=== PATIENT | female | born 1955 | race Caucasian/White ===

== ENCOUNTER 2023-10-18 12:18 | Outpatient (RCR) | payer OTHER, SELFPAY | END 2023-10-18 23:59 | disposition home or self-care (01) | LOC: RPT 12:18 | PROVIDERS: ATTENDING PHYSICIAN Internal Medicine Gastroenterology; FAMILY PHYSICIAN Nurse Practitioner | DX: K59.02 Outlet dysfunction constipation (principal); M62.89 Other specified disorders of muscle | CPT/HCPCS: 97110; 97112; 97163; 97530 ==

== ENCOUNTER → 2023-11-06 07:29 | Outpatient (REF) | payer OTHER, SELFPAY ==
[2023-11-06 09:36] LABS: TSH Reflex To Free T4 1.73 uIU/ml (0.47-4.68)
[2023-11-08 01:41] LABS: IgA 192 mg/dl (70-400); IgG 1067 mg/dl (700-1600); IgM 89 mg/dl (40-230)
[2023-11-09 13:41] LABS: tTG IgA Antibody 5.4 EU/ml (0-19)
[2023-11-10 21:37] LABS: Pancreatic Elastase, Fecal >800 ug/g (>=100)
[2023-11-10 22:07] LABS: Calprotectin, Fecal 45 ug/g (<=49)
== END ==
LOC: REG 07:29
PROVIDERS: ATTENDING PHYSICIAN Internal Medicine Gastroenterology; FAMILY PHYSICIAN Nurse Practitioner
DX: R19.5 Other fecal abnormalities (principal)
CPT/HCPCS: 36415; 82653; 82784; 83516; 83993; 84443; 87328; 87329

== ENCOUNTER 2023-11-22 11:50 | Outpatient (RCR) | payer OTHER, SELFPAY | END 2023-11-22 23:59 | disposition home or self-care (01) | LOC: RPT 11:50 | PROVIDERS: ATTENDING PHYSICIAN Internal Medicine Gastroenterology; FAMILY PHYSICIAN Nurse Practitioner | DX: K59.02 Outlet dysfunction constipation (principal); M62.89 Other specified disorders of muscle; Z73.6 Limitation of activities due to disability; Z98.890 Other specified postprocedural states | CPT/HCPCS: 97110; 97112; 97530 ==

== ENCOUNTER → 2023-12-06 06:36 | Day surgery (SDC) | payer OTHER, SELFPAY ==
[2023-12-06 11:35] LABS: Glucose - Point of Care 93 mg/dl (70-99)
== END ==
LOC: GI 06:36
PROVIDERS: ATTENDING PHYSICIAN Internal Medicine Gastroenterology
DX: R13.10 Dysphagia, unspecified (principal); K22.2 Esophageal obstruction; K22.89 Other specified disease of esophagus; K31.7 Polyp of stomach and duodenum; K44.9 Diaphragmatic hernia without obstruction or gangrene; K31.89 Other diseases of stomach and duodenum; K20.80 Other esophagitis without bleeding
CPT/HCPCS: 43239; 88305; 82962; 88342

== ENCOUNTER → 2024-01-10 07:35 | Outpatient (REF) | payer OTHER, SELFPAY | LOC: RAD 07:35 | PROVIDERS: ATTENDING PHYSICIAN Internal Medicine Interventional Cardiology; FAMILY PHYSICIAN Internal Medicine | DX: E78.5 Hyperlipidemia, unspecified (principal) | CPT/HCPCS: 75571; 93306 ==

== ENCOUNTER → 2024-01-24 06:45 | Outpatient (REF) | payer OTHER, SELFPAY ==
[2024-01-24 09:06] LABS: ALT (SGPT) 45 U/L (0-35); AST (SGOT) 41 U/L (14-36); Albumin 4.6 g/dl (3.5-5.0); Alkaline Phosphatase 69 U/L (38-126); Blood Urea Nitrogen 18 mg/dl (7-17); Calcium 9.4 mg/dl (8.4-10.2); Carbon Dioxide 27 mmol/L (22-30); Chloride 103 mmol/L (98-107); Glucose 115 mg/dl (70-99); HDL Cholesterol 70 mg/dl; LDL Cholesterol, Calculated 79 mg/dl; Potassium 4.4 mmol/L (3.5-5.1); Sodium 137 mmol/L (135-145); Total Bilirubin 0.5 mg/dl (0.2-1.3); Total Cholesterol 163 mg/dl (50-199); Total Protein 7.3 g/dl (6.3-8.2); Triglyceride 73 mg/dl (10-149); Very Low Density Lipoprotein 14 mg/dl (0-30); eGFR > 60.00
[2024-01-24 09:30] LABS: Glycohemoglobin (HgbA1c) 6.5 % (4.0-5.6)
[2024-01-25 12:50] LABS: Apolipoprotein B 84 mg/dL (60-117)
[2024-01-25 12:53] LABS: Lipoprotein a (Lp a) 33 mg/dL (<=29)
== END ==
LOC: REG 06:45
PROVIDERS: ATTENDING PHYSICIAN Internal Medicine Interventional Cardiology; FAMILY PHYSICIAN Internal Medicine
DX: E78.5 Hyperlipidemia, unspecified (principal); E11.9 Type 2 diabetes mellitus without complications
CPT/HCPCS: 36415; 80053; 80061; 82172; 83036; 83695

== ENCOUNTER → 2024-03-02 10:17 | Outpatient (REF) | payer OTHER, SELFPAY ==
[2024-03-02 11:59] LABS: Iron 41 ug/dl (37-170)
[2024-03-02 12:10] LABS: Percent Saturation 12 % (20-50); Total Iron Binding Capacity 330 ug/dl (265-497)
[2024-03-02 12:28] LABS: Ferritin 42.6 ng/ml (11.1-264.0)
[2024-03-03 02:13] LABS: Hepatitis B Core Ab, Total Negative (Negative); Hepatitis B Surface Antibody Positive; Hepatitis C Antibody Negative (Negative)
[2024-03-03 03:46] LABS: Hepatitis A Antibody, Total Positive (Negative)
[2024-03-03 12:25] LABS: Hepatitis A IgM Antibody Negative (Negative)
== END ==
LOC: REG 10:17
PROVIDERS: ATTENDING PHYSICIAN Internal Medicine Gastroenterology; FAMILY PHYSICIAN Internal Medicine
DX: R74.8 Abnormal levels of other serum enzymes (principal)
CPT/HCPCS: 36415; 82728; 83540; 83550; 86704; 86706; 86708; 86709; 86803

== ENCOUNTER → 2024-03-03 16:03 | Outpatient (REF) | payer OTHER, SELFPAY ==
[2024-03-03 17:18] LABS: % Basophils 0.3 % (0-2); % Eosinophils 1.4 % (0-6); % Immature Granulocytes 0.2 % (0-0.5); % Lymphocytes 31.8 % (20.5-51.1); % Monocytes 8.3 % (1.7-9.3); Absolute Eosinophils 0.1 10^3/uL (0-0.7); Absolute Lymphocytes 1.8 10^3/uL (1.2-3.4); Absolute Monocytes 0.5 10^3/uL (0.1-0.6); Absolute Neutrophils 3.4 10^3/uL (1.4-6.5); Hematocrit 38.1 % (37.0-47.0); Hemoglobin 12.8 g/dL (12.0-16.0); Mean Corp Hgb Conc. 33.6 g/dL (33.0-37.0); Mean Corpuscular Hgb 31.8 pg (27.0-31.0); Mean Corpuscular Volume 94.5 fL (81.0-99.0); Mean Platelet Volume 9.5 fL (7.4-10.4); Nucleated Red Blood Cells % 0 %; Platelet Count 277 10^3/uL (130-400); Red Blood Cell Count 4.03 10^6/uL (4.20-5.40); Red Cell Dist. Width 13.2 % (11.5-14.5); White Blood Cell Count 5.8 10^3/uL (4.8-10.8)
== END ==
LOC: REG 16:03
PROVIDERS: ATTENDING PHYSICIAN Internal Medicine Gastroenterology; FAMILY PHYSICIAN Internal Medicine
DX: R74.8 Abnormal levels of other serum enzymes (principal)
CPT/HCPCS: 36415; 85025

== ENCOUNTER → 2024-03-06 07:25 | Outpatient (REF) | payer OTHER, SELFPAY | LOC: HWRAD 07:25 | PROVIDERS: ATTENDING PHYSICIAN Internal Medicine; OTHER PHYSICIAN Internal Medicine Gastroenterology; REFERRING PHYSICIAN Internal Medicine Interventional Cardiology | DX: R79.89 Other specified abnormal findings of blood chemistry (principal) | CPT/HCPCS: 76700 ==

== ENCOUNTER → 2024-04-03 06:36 | Day surgery (SDC) | payer OTHER, SELFPAY ==
[2024-04-03 10:00] LABS: Glucose - Point of Care 110 mg/dl (70-99)
== END ==
LOC: GI 06:36
PROVIDERS: ATTENDING PHYSICIAN Internal Medicine Gastroenterology
DX: K62.5 Hemorrhage of anus and rectum (principal); R19.7 Diarrhea, unspecified; K64.0 First degree hemorrhoids; K63.3 Ulcer of intestine; K62.89 Other specified diseases of anus and rectum; K57.30 Diverticulosis of large intestine without perforation or abscess without bleeding; D12.0 Benign neoplasm of cecum
CPT/HCPCS: 45385; 45380; 88305; 82962

== ENCOUNTER → 2024-04-10 07:09 | Outpatient (REF) | payer OTHER, SELFPAY | LOC: RAD 07:09 | PROVIDERS: ATTENDING PHYSICIAN Internal Medicine; REFERRING PHYSICIAN Internal Medicine Interventional Cardiology | DX: I65.23 Occlusion and stenosis of bilateral carotid arteries (principal) | CPT/HCPCS: 93880 ==

== ENCOUNTER → 2024-06-05 07:39 | Outpatient (REF) | payer OTHER, SELFPAY | LOC: PAVMRI 07:39 | PROVIDERS: ATTENDING PHYSICIAN Internal Medicine Gastroenterology; FAMILY PHYSICIAN Internal Medicine | DX: R19.7 Diarrhea, unspecified (principal) | CPT/HCPCS: 72197; 74183; A9575 ==

== ENCOUNTER → 2024-07-13 10:41 | Outpatient (REF) | payer OTHER, SELFPAY ==
[2024-07-13 11:41] LABS: % Basophils 0.5 % (0-2); % Eosinophils 1.5 % (0-6); % Immature Granulocytes 0.3 % (0-0.5); % Lymphocytes 25.2 % (20.5-51.1); % Monocytes 7.7 % (1.7-9.3); % Neutrophils 64.8 % (42.2-75.2); Absolute Eosinophils 0.1 10^3/uL (0-0.7); Absolute Lymphocytes 1.5 10^3/uL (1.2-3.4); Absolute Monocytes 0.5 10^3/uL (0.1-0.6); Absolute Neutrophils 3.9 10^3/uL (1.4-6.5); Hematocrit 37.6 % (37.0-47.0); Hemoglobin 13.1 g/dL (12.0-16.0); Mean Corp Hgb Conc. 34.8 g/dL (33.0-37.0); Mean Corpuscular Hgb 31.1 pg (27.0-31.0); Mean Corpuscular Volume 89.3 fL (81.0-99.0); Mean Platelet Volume 9.6 fL (7.4-10.4); Nucleated Red Blood Cells % 0 %; Platelet Count 296 10^3/uL (130-400); Red Blood Cell Count 4.21 10^6/uL (4.20-5.40); Red Cell Dist. Width 13.4 % (11.5-14.5)
[2024-07-13 12:07] LABS: ALT (SGPT) 34 U/L (0-35); AST (SGOT) 34 U/L (14-36); Alkaline Phosphatase 67 U/L (38-126); Direct Bilirubin 0.1 mg/dl (0.0-0.4); Iron 166 ug/dl (37-170); Total Bilirubin 0.3 mg/dl (0.2-1.3); Total Protein 7.6 g/dl (6.3-8.2)
[2024-07-13 12:17] LABS: Percent Saturation 52 % (20-50); Total Iron Binding Capacity 319 ug/dl (265-497)
[2024-07-13 12:42] LABS: Ferritin 65.8 ng/ml (11.1-264.0)
== END ==
LOC: REG 10:41
PROVIDERS: ATTENDING PHYSICIAN Internal Medicine Gastroenterology; FAMILY PHYSICIAN Internal Medicine
DX: R74.8 Abnormal levels of other serum enzymes (principal); E61.1 Iron deficiency
CPT/HCPCS: 36415; 80076; 82728; 83540; 83550; 85025

== ENCOUNTER 2024-09-16 16:26 | Emergency (ER) | payer OTHER, SELFPAY ==
[2024-09-16 16:28] VITALS: BP 146/60
[2024-09-16 16:50] LABS: % Basophils 0.5 % (0-2); % Eosinophils 1.1 % (0-6); % Immature Granulocytes 0.2 % (0-0.5); % Lymphocytes 24.8 % (20.5-51.1); % Monocytes 6.6 % (1.7-9.3); % Neutrophils 66.8 % (42.2-75.2); Absolute Eosinophils 0.1 10^3/uL (0-0.7); Absolute Lymphocytes 1.6 10^3/uL (1.2-3.4); Absolute Monocytes 0.4 10^3/uL (0.1-0.6); Absolute Neutrophils 4.4 10^3/uL (1.4-6.5); Hematocrit 39.3 % (37.0-47.0); Hemoglobin 13.9 g/dL (12.0-16.0); Mean Corp Hgb Conc. 35.4 g/dL (33.0-37.0); Mean Corpuscular Hgb 32.7 pg (27.0-31.0); Mean Corpuscular Volume 92.5 fL (81.0-99.0); Mean Platelet Volume 8.8 fL (7.4-10.4); Nucleated Red Blood Cells % 0 %; Platelet Count 277 10^3/uL (130-400); Red Blood Cell Count 4.25 10^6/uL (4.20-5.40); Red Cell Dist. Width 13.5 % (11.5-14.5); White Blood Cell Count 6.5 10^3/uL (4.8-10.8)
[2024-09-16 17:01] LABS: ALT (SGPT) 32 U/L (0-35); AST (SGOT) 33 U/L (14-36); Albumin 4.9 g/dl (3.5-5.0); Alkaline Phosphatase 54 U/L (38-126); Blood Urea Nitrogen 18 mg/dl (7-17); Calcium 9.4 mg/dl (8.4-10.2); Carbon Dioxide 26 mmol/L (22-30); Chloride 101 mmol/L (98-107); Glucose 131 mg/dl (70-99); Lipase 137 U/L (23-300); Potassium 3.8 mmol/L (3.5-5.1); Sodium 137 mmol/L (135-145); Total Bilirubin 0.3 mg/dl (0.2-1.3); Total Protein 7.5 g/dl (6.3-8.2); eGFR > 60.00
[2024-09-16 18:06] VITALS: BP 126/70
[2024-09-16 18:55] LABS: Urine Albumin Trace (Neg - Trace); Urine Bilirubin Negative (Negative); Urine Character Clear (Clear); Urine Color Yellow; Urine Glucose Negative (Negative); Urine Ketone Negative (Negative); Urine Leukocyte Negative (Negative); Urine Nitrite Negative (Negative); Urine Occult Blood Negative (Negative); Urine Specific Gravity 1.025 (<1.030); Urine Urobilinogen Negative (Neg - 1+)
--- NOTE | 2024-09-16 19:57 | ED.GENMED ---
History of Present Illness
General
Chief Complaint: Abdominal Pain
Source: patient
Exam Limitations: none
Time Seen by Provider: 09/16/24 18:08
Nursing documentation reviewed up to this point in time: agreed with
History of Present Illness
History of Present Illness:
The patient is a 69-year-old female past medical history of diabetes asthma presenting to the emergency department today with concerns of left upper quadrant abdominal pain for the past 5 days with associated nausea. Pain seems to be worse with
some specific positioning and movement. Denies any associated chest pain shortness of breath nausea vomiting. Not specifically exertional.
Review of Systems
Review of Systems
Allergies reviewed?: Yes
All Other Systems: ROS reviewed and negative except as documented in HPI and ROS
Phy Exam
Physical Exam
Physical Exam:
GENERAL: Alert , in no apparent distress
EYE: pupils equal and reactive
NECK: Supple, no significant adenopathy.
ENT: o/p clr, mmm.
CARDIAC: Regular rate and rhythm .
LUNGS: Clear breath sounds bilaterally, no acute respiratory distress, no wheezes/rales/rhonchi
ABDOMEN: Soft, without focal tenderness, no r/g, no cvat
NEUROLOGICAL: Alert and oriented, no focal neuro deficits
SKIN: Warm and dry, skin intact.
MUSCULOSKELETAL: No edema, well perfused.
PSYCH: Normal and appropriate interaction.
Course
Orders/Labs/Results
Orders:
Orders
09/16/24 16:38
Complete Blood Count/With Diff Urgent
Comprehensive Metabolic Panel Urgent
Lipase Urgent
09/16/24 18:44
Urinalysis Reflex To Culture Urgent
Date Specimen was Collected: 09/16/24
Time Specimen was Collected: 18:42
09/16/24 18:58
CT Abd/Pel (IV only)-DH only Urgent
Comment:
Reason For Exam: left sided upper abd pain
Abnormal Lab Results
09/16/24
16:38
MCH 32.7 H pg
(27.0-31.0)
BUN 18 H mg/dl
(7-17)
Glucose 131 H mg/dl
(70-99)
09/16/24 16:38
09/16/24 16:38
Vital Signs
Initial and Last Documented VS:
Initial Vital Signs
Temp Pulse Resp BP Pulse Ox
98.2 F 81 16 146/60 96
09/16/24 16:28 09/16/24 16:28 09/16/24 16:28 09/16/24 16:28 09/16/24 16:28
Last Documented Vital Signs
Temp Pulse Resp BP Pulse Ox
98.2 F 81 16 126/70 96
09/16/24 16:28 09/16/24 16:28 09/16/24 16:28 09/16/24 18:06 09/16/24 18:45
MDM/Problems Addressed
MDM/Problems Addressed:
69-year-old female presenting to the emergency department today with concerns of left-sided abdominal pain mainly surrounding the lower ribs over the past 5 days associated nausea no vomiting no changes in bowel movements. Abdomen vague mild
discomfort to the left flank otherwise no specific abdominal tenderness no peritoneal signs no guarding. CT without emergent findings patient generally well-appearing throughout ER stay labs unremarkable patient vies for close outpatient follow-up
and otherwise no emergent findings at this time.
*Critical Care Note
Total Time (30-74mins, 75-104mins- exclusive of procedures): Not Applicable
ED Attending Note
-
Portions of this chart may have been created with voice recognition software.� Occasional wrong word or��sound alike� substitutions may have occurred due to the inherent limitations of voice recognition software.
Discharge Plan
Departure
Patient Disposition: Home (Routine Discharge)
Date of Disposition: 09/16/24
Time of Disposition: 21:42
Patient with high blood pressure during this ER visit?: No
Condition: Good
Covid-19: Not Applicable
Discharge Problem:
Abdominal pain
Instructions: Abdominal Pain
Prescriptions:
No Action
No Current Medications
Referrals:
Chuck Leach MD [Family Provider] -
Activity Restrictions/Additional Instructions:
You came to the emergency department today with concerns of left-sided flank and abdominal discomfort. Here had a reassuring assessment. Please follow closely with your outpatient doctors. Return to the emergency department worsening, new or
concerning symptoms.
Interventions
Interventions:
*Risk Screen - Suicide Last Done: 09/16/24 16:28
*General Assessment Last Done: 09/16/24 16:28
*Neglect/Abuse Screening Last Done: 09/16/24 16:28
ED- Fall Risk Assessment Last Done: 09/16/24 18:49
*ED COVID-19 Vaccine History Last Done: 09/16/24 16:28
*Nursing Disposition Last Done: 09/16/24 21:50
QQ-Ivtsjc-Jlpvnpltwn Assessment Last Done: 09/16/24 18:49
Discharge Date and Time
Discharge Date/Time: 09/16/24 21:51
Print Language: UZBEK
== END 2024-09-16 21:51 | disposition home or self-care (01) ==
LOC: EMR 16:26
PROVIDERS: Physician Assistant; EMERGENCY PHYSICIAN Emergency Medicine; FAMILY PHYSICIAN Internal Medicine
DX: R10.12 Left upper quadrant pain (principal); R11.0 Nausea; E11.9 Type 2 diabetes mellitus without complications; J45.909 Unspecified asthma, uncomplicated
CPT/HCPCS: 99284; 74177; 80053; 81003; 83690; 85025; Q9967

== ENCOUNTER 2024-09-27 12:41 | Emergency (ER) | payer OTHER, SELFPAY ==
[2024-09-27 12:44] VITALS: BP 147/71
[2024-09-27 13:00] LABS: % Basophils 0.4 % (0-2); % Eosinophils 0.5 % (0-6); % Immature Granulocytes 0.3 % (0-0.5); % Lymphocytes 19.6 % (20.5-51.1); % Monocytes 4.5 % (1.7-9.3); % Neutrophils 74.7 % (42.2-75.2); Absolute Lymphocytes 1.5 10^3/uL (1.2-3.4); Absolute Monocytes 0.3 10^3/uL (0.1-0.6); Absolute Neutrophils 5.6 10^3/uL (1.4-6.5); Hemoglobin 13.8 g/dL (12.0-16.0); Mean Corp Hgb Conc. 33.7 g/dL (33.0-37.0); Mean Corpuscular Hgb 31.9 pg (27.0-31.0); Mean Corpuscular Volume 94.9 fL (81.0-99.0); Mean Platelet Volume 8.8 fL (7.4-10.4); Nucleated Red Blood Cells % 0 %; Platelet Count 286 10^3/uL (130-400); Red Blood Cell Count 4.32 10^6/uL (4.20-5.40); Red Cell Dist. Width 13.2 % (11.5-14.5); White Blood Cell Count 7.5 10^3/uL (4.8-10.8)
[2024-09-27 13:11] LABS: ALT (SGPT) 30 U/L (0-35); AST (SGOT) 27 U/L (14-36); Albumin 4.9 g/dl (3.5-5.0); Alkaline Phosphatase 51 U/L (38-126); Blood Urea Nitrogen 19 mg/dl (7-17); Calcium 9.5 mg/dl (8.4-10.2); Carbon Dioxide 29 mmol/L (22-30); Chloride 98 mmol/L (98-107); Glucose 141 mg/dl (70-99); Potassium 4.3 mmol/L (3.5-5.1); Sodium 137 mmol/L (135-145); Total Bilirubin 0.4 mg/dl (0.2-1.3); Total Protein 7.5 g/dl (6.3-8.2); eGFR > 60.00
[2024-09-27 16:04] VITALS: BP 135/80
[2024-09-27 16:05] VITALS: BMI 23.7
--- NOTE | 2024-09-27 16:25 | ED.GENMED ---
History of Present Illness
General
Chief Complaint: Abdominal Pain
Source: patient
Exam Limitations: none
Time Seen by Provider: 09/27/24 15:58
Nursing documentation reviewed up to this point in time: agreed with
History of Present Illness
History of Present Illness:
Patient with history of diabetes on insulin and metformin, presents to ED secondary to continual intermittent left-sided abdominal pain with nausea sensation over the past 2 weeks. Patient was seen in ED for similar complaint at onset of her
symptoms, during which time she received normal workup, including blood work and CT scan abdomen pelvis. Denies fever or chills. Denies vomiting or diarrhea. Denies trauma. Denies back pain. Denies difficulty with urination. Abdominal pain
described as achy, nonradiating, without any alleviating or exacerbating factors. Denies previous history of similar symptoms. Patient has had history of back pain, for which she has seen painter supervisor, but states that her symptoms
are different than her previous back pain.
Review of Systems
Review of Systems
Allergies reviewed?: Yes
All Other Systems: ROS reviewed and negative except as documented in HPI and ROS
Constitutional: Reports no symptoms; Denies fever or chills
Respiratory: Reports no symptoms
Cardiac: Reports no symptoms
ABD/GI: Reports abdominal pain; Denies vomiting or diarrhea
: Reports no symptoms
Musculoskeletal: Reports no symptoms; Denies back pain
Skin: Reports no symptoms
Neurological: Reports no symptoms
Phy Exam
Physical Exam
Physical Exam:
Physical Exam
General: mild painful distress, not acutely ill. afebrile
Head: nc/at. eomi
Neck: supple. no meningeal signs.
Heart: s1/s2 regular rate and rhythm, no murmur. equal radial pulses.
Lungs: no acute respiratory distress. clear bilaterally
Abdomen: normal bowel sounds. not tender. no distention
Neuro: alert and oriented. no focal neurological deficits
Skin: no rash
Psychiatric: well kept. interactive and cooperative
Extremities: no edema. no calf tenderness.
Course
Orders/Labs/Results
Orders:
Orders
09/27/24 12:52
CMP [Comprehensive Metabolic Panel] Urgent
Complete Blood Count/With Diff Urgent
Lipase Urgent
Comment: ADD ON
09/27/24 16:17
Add On- LAB Urgent
Tests Added?: lipase
09/27/24 16:23
CT Abd/pelvis Angio W/wo Iv Urgent
Comment:
Reason For Exam: left sided abdominal pain
09/27/24 16:25
Urinalysis Reflex To Culture Urgent
Date Specimen was Collected: 09/27/24
Time Specimen was Collected: 16:21
Urine Microscopic Reflex Cult Urgent
09/27/24 17:17
Ketorolac [Toradol] 15 mg IV NOW STA
09/27/24 18:09
Amoxicillin 875 mg/Clav 125 mg [Augmentin 875 mg/125 mg] 1 tablet PO NOW STA
Tramadol HCl [Ultram] 50 mg PO NOW STA
Abnormal Lab Results
09/27/24 09/27/24
12:52 16:25
MCH 31.9 H pg
(27.0-31.0)
Lymphocytes % 19.6 L %
(20.5-51.1)
BUN 19 H mg/dl
(7-17)
Glucose 141 H mg/dl
(70-99)
Leukocyte Esterase Rfl Trace A
(Negative)
Urine Bacteria (Reflex) Few A
(Negative)
09/27/24 12:52
09/27/24 12:52
Vital Signs
Initial and Last Documented VS:
Initial Vital Signs
Temp Pulse Resp BP Pulse Ox
98.7 F 73 18 147/71 98
09/27/24 12:44 09/27/24 12:44 09/27/24 12:44 09/27/24 12:44 09/27/24 12:44
Last Documented Vital Signs
Temp Pulse Resp BP Pulse Ox
98.7 F 73 16 142/84 97
09/27/24 12:44 09/27/24 18:20 09/27/24 18:20 09/27/24 18:00 09/27/24 18:15
MDM/Problems Addressed
MDM/Problems Addressed:
CT angiogram abdomen pelvis ordered, secondary to concern for potential ischemic colitis, due to ongoing symptoms along with underlying diabetic history.
CT abdomen pelvis report reviewed and discussed with patient. Decision made to start patient on Augmentin for potential early development of diverticulitis, as well as short course of tramadol for pain relief. Patient already has MRI spine
scheduled in the upcoming week, as ordered by her painter supervisor. Advised PCP follow-up as outpatient or return to ED with worsening symptoms. Patient otherwise is afebrile, hemodynamically stable, and nontoxic-appearing at time of
discharge.
*Critical Care Note
Total Time (30-74mins, 75-104mins- exclusive of procedures): Not Applicable
ED Attending Note
-
Portions of this chart may have been created with voice recognition software.� Occasional wrong word or��sound alike� substitutions may have occurred due to the inherent limitations of voice recognition software.
Discharge Plan
Departure
Patient Disposition: Home (Routine Discharge)
Date of Disposition: 09/27/24
Time of Disposition: 18:11
Patient with high blood pressure during this ER visit?: Yes
Condition: Good
Discharge Problem:
Diverticulosis, Lumbar disc disease
Instructions: Diverticulosis
Prescriptions:
New
amoxicillin-pot clavulanate 875-125 mg tablet
1 tab PO BID Qty: 13 0RF
tramadol 50 mg tablet
50 mg PO Q8H PRN (Reason: Pain) Qty: 14 0RF
No Action
No Current Medications
Referrals:
Chuck Leach MD [Family Provider] -
Activity Restrictions/Additional Instructions:
As discussed, please follow-up with your primary care physician as well as painter supervisor for further evaluation and treatment. Your prescriptions have been sent electronically to [facility] [place].
Interventions
Interventions:
*Risk Screen - Suicide Last Done: 09/27/24 12:44
*General Assessment Last Done: 09/27/24 12:44
*Neglect/Abuse Screening Last Done: 09/27/24 12:44
ED- Fall Risk Assessment Last Done: 09/27/24 16:05
*ED COVID-19 Vaccine History Last Done: 09/27/24 12:44
*Nursing Disposition Last Done: 09/27/24 18:22
HB-Ijptgo-Jpsnikzjtp Assessment Last Done: 09/27/24 16:05
Discharge Date and Time
Discharge Date/Time: 09/27/24 18:32
Print Language: CITIZEN [place]
[2024-09-27 16:27] VITALS: BP 141/82
[2024-09-27 16:41] LABS: Urine Albumin Negative (Neg - Trace); Urine Bilirubin Negative (Negative); Urine Character Clear (Clear); Urine Color Yellow; Urine Glucose Negative (Negative); Urine Ketone Negative (Negative); Urine Leukocyte Trace (Negative); Urine Nitrite Negative (Negative); Urine Occult Blood Negative (Negative); Urine Specific Gravity 1.025 (<1.030); Urine Urobilinogen Negative (Neg - 1+)
[2024-09-27 17:00] VITALS: BP 143/70
[2024-09-27 17:00] LABS: Lipase 98 U/L (23-300)
[2024-09-27 17:09] LABS: Urine Bacteria Few (Negative); Urine Red Blood Cell 0-2 /HPF (0-2); Urine Squamous Cell 16-20 /LPF (Few)
[2024-09-27] MEDS: TORADOL 15 MG IV (17:34)
[2024-09-27 18:00] VITALS: BP 142/84
[2024-09-27] MEDS: ULTRAM 50 MG PO (18:13)
[2024-09-27] MEDS: AUGMENTIN 875 MG/125 MG 1 TABLET PO (18:13)
== END 2024-09-27 18:32 | disposition home or self-care (01) ==
LOC: EMR 12:41
PROVIDERS: Emergency Medicine; EMERGENCY PHYSICIAN Emergency Medicine; FAMILY PHYSICIAN Internal Medicine
DX: K57.30 Diverticulosis of large intestine without perforation or abscess without bleeding (principal); R11.0 Nausea; R10.32 Left lower quadrant pain; M51.9 Unspecified thoracic, thoracolumbar and lumbosacral intervertebral disc disorder; E11.9 Type 2 diabetes mellitus without complications; M54.9 Dorsalgia, unspecified; Z79.4 Long term (current) use of insulin; Z91.040 Latex allergy status; Z91.013 Allergy to seafood; Z91.048 Other nonmedicinal substance allergy status
CPT/HCPCS: 99284; 96374; 74174; 80053; 81003; 81015; 83690; 85025; Q9967